=== PATIENT | male | born 1980 | race Caucasian/White ===

== ENCOUNTER → 2017-03-07 | Outpatient (CLI) | payer OTHER ==
[~2017-03-07] MED LIST: SERT100T PO
[2017-03-07 17:38] LABS: HEMATOCRIT 44.7 % (42-52); MEAN CELL VOLUME 84.8 fL (80-100); MEAN CORPUSCULAR HEMOGLOBIN 30.6 pg (25-34); MEAN PLATELET VOLUME 9.5 fL (7.4-10.4); PLATELET COUNT 263 K/uL (130-400); RED BLOOD COUNT 5.27 M/uL (4.7-6.1)
[2017-03-07 17:59] LABS: AST/SGOT 42 U/L (15-37); BLOOD UREA NITROGEN 13 mg/dl (7-18); BUN/CREATININE RATIO 11.2 (10-20); CALCIUM 10.1 mg/dl (8.5-10.1); CARBON DIOXIDE 32 mmol/L (21-32); CHLORIDE 106 mmol/L (98-107); GLUCOSE 81 mg/dl (70-99); POTASSIUM 4.2 mmol/L (3.5-5.1); SODIUM 143 mmol/L (136-145)
[2017-03-07 18:11] LABS: ALKALINE PHOSPHATASE 90 U/L (45-117); ALT/SGPT 96 U/L (12-78); THYROID STIMULATING HORMONE 0.734 uIu/ml (0.300-4.500)
== END | disposition home or self-care (01) ==
LOC: C.LABBFT 15:31
PROVIDERS: ATTEND Physician Assistant Medical
DX: R53.83 Other fatigue (principal)

== ENCOUNTER → 2017-03-07 | Outpatient (CLI) | payer OTHER | END | disposition home or self-care (01) | LOC: C.LABSPEC 18:12 | PROVIDERS: ATTEND Physician Assistant Medical | DX: J02.9 Acute pharyngitis, unspecified (principal) ==

== ENCOUNTER → 2017-03-09 | Outpatient (CLI) | payer OTHER ==
[2017-03-09 13:41] LABS: ALKALINE PHOSPHATASE 95 U/L (45-117); ALT/SGPT 94 U/L (12-78); AST/SGOT 35 U/L (15-37); FERRITIN 68.4 ng/ml (8.0-388.0); TOTAL IRON BINDING CAPACITY 358 mcg/dl (250-450)
[2017-03-10 15:10] LABS: ALPHA-1-ANTITRYPSIN TC 67710E 135 MG/DL (83-199)
== END | disposition home or self-care (01) ==
LOC: C.LABBFT 08:27
PROVIDERS: ATTEND Physician Assistant Medical
DX: R74.8 Abnormal levels of other serum enzymes (principal)

== ENCOUNTER → 2017-03-10 | Outpatient (CLI) | payer OTHER ==
--- NOTE | 2017-03-10 07:58 | DIAGNOSTIC IMAGING REPORT ---
ULTRASOUND RIGHT UPPER QUADRANT ABDOMEN CLINICAL HISTORY: Elevated hepatic transaminases. COMPARISON STUDY: Abdominal CT dated 08/29/2014. TECHNIQUE: Real-time, grayscale, and color flow sonography of the right upper quadrant of the abdomen was performed. Images are reviewed in the transverse and longitudinal planes. FINDINGS: Liver: The liver is enlarged and demonstrates heterogeneously increased echotexture consistent with severe hepatic steatosis. Note that this degrades acoustic penetration of the liver. There is no intrahepatic biliary ductal dilatation. The main portal vein is patent. Gallbladder: The gallbladder is normal in appearance. No gallstones are identified. There is no gallbladder wall thickening or pericholecystic fluid. A sonographic Cortes's sign is reportedly absent. The common bile duct measures up to 0.4 cm in diameter. Pancreas: Visualized portions of the pancreatic head and body are normal in appearance. Right kidney: Survey images of the right kidney demonstrate normal size and echotexture. There is no hydronephrosis. Ascites: None. IMPRESSION: 1. No acute sonographic abnormality is identified. No gallstones are seen. 2. Hepatomegaly and severe hepatic steatosis. Electronically signed by: Ben Schaefer M.D. 03/10/2017 7:57 AM Dictated Date/Time: 03/10/2017 7:56 AM
== END | disposition home or self-care (01) ==
LOC: C.ULTR 06:48
PROVIDERS: ATTEND Physician Assistant Medical
DX: R74.8 Abnormal levels of other serum enzymes (principal); R16.0 Hepatomegaly, not elsewhere classified; K76.0 Fatty (change of) liver, not elsewhere classified

== ENCOUNTER → 2017-04-10 | Outpatient (CLI) | payer OTHER ==
[2017-04-13 05:03] LABS: ANTI-CENTROMERE AB <1.0 NEG AI (<1.0 NEG); ANTI-SS-A <1.0 NEG AI (<1.0 NEG); ANTI-SS-B <1.0 NEG AI (<1.0 NEG); DNA ds CRITHIDIA NEGATIVE (NEGATIVE); MICROSOMAL AB 8 IU/ML (<9); Sm Antibody <1.0 NEG AI (<1.0 NEG)
== END | disposition home or self-care (01) ==
LOC: C.LAB1850 11:00
PROVIDERS: ATTEND Internal Medicine Rheumatology
DX: R53.83 Other fatigue (principal); R76.8 Other specified abnormal immunological findings in serum; M25.50 Pain in unspecified joint; M54.6 Pain in thoracic spine

== ENCOUNTER → 2017-04-13 | Outpatient (CLI) | payer OTHER ==
--- NOTE | 2017-04-13 13:06 | DIAGNOSTIC IMAGING REPORT ---
L-SPINE MIN 4 VIEWS ROUTINE CLINICAL HISTORY: R53.83 [id number] Elevated antinuclear antibody (ZINA) [id number] lower back pain. COMPARISON STUDY: No previous studies for comparison. FINDINGS: There are postsurgical changes in the right lower quadrant. There is no pathologic bowel dilatation. No fractures or subluxations are visualized. There are no erosive or destructive changes. There are minor degenerative changes the thoracolumbar junction. IMPRESSION: Minor degenerative changes at the thoracolumbar junction. No fractures subluxations or destructive lesions are visualized Electronically signed by: Gray Laughlin M.D. 04/13/2017 1:05 PM Dictated Date/Time: 04/13/2017 1:04 PM
--- NOTE | 2017-04-13 13:08 | DIAGNOSTIC IMAGING REPORT ---
THORACIC SPINE 3 VIEWS CLINICAL HISTORY: Thoracic back pain. Numbness in lower back. FINDINGS: AP, lateral, and swimmer's views of the thoracic spine are obtained. No prior studies are available for comparison at the time of dictation. The skeletal structures are well mineralized. No fracture or malalignment is identified. Vertebral body height and alignment are maintained throughout the thoracic spine. Tiny anterior osteophytes are seen throughout. The transverse processes and pedicles are grossly intact as seen on the frontal view. Intervertebral disc spaces appear maintained. The imaged lung parenchyma appears clear. IMPRESSION: No acute bony abnormality is seen involving the thoracic spine. Electronically signed by: Ben Schaefer M.D. 04/13/2017 1:06 PM Dictated Date/Time: 04/13/2017 1:04 PM
[2017-04-13 13:24] LABS: URINE APPEARANCE CLEAR (CLEAR); URINE BILIRUBIN NEG (NEG); URINE COLOR YELLOW; URINE EPITHELIAL CELL AUTO 0-5 /lpf (0-5); URINE NITRITE NEG (NEG); URINE SPECIFIC GRAVITY 1.022 (1.000-1.030); UROBILINOGEN NEG (NEG)
[2017-04-13 13:35] LABS: MANUAL MICROSCOPIC REQUIRED? NO; REVIEW REQ? NO
--- NOTE | 2017-04-13 16:38 | DIAGNOSTIC IMAGING REPORT ---
WHOLE BODY BONE SCAN HISTORY: Back pain CHRONIC THORACIC BACK PAIN RADIOTRACER: 26.5 mCi Tc-99m MDP STUDY/IMAGES: Planar anterior and posterior whole body imaging was performed 3 hours following the intravenous administration of radiotracer. COMPARISON: None. FINDINGS: Normal activity characteristics of the axial and appendicular skeleton. No abnormal foci of increased activity. Bilateral renal activity is present. IMPRESSION: Normal study Electronically signed by: Ricihe Delgado M.D. 04/13/2017 4:37 PM Dictated Date/Time: 04/13/2017 4:35 PM
== END | disposition home or self-care (01) ==
LOC: C.NUCL 12:15
PROVIDERS: ATTEND Internal Medicine Rheumatology
DX: M25.50 Pain in unspecified joint (principal); M54.6 Pain in thoracic spine; R53.83 Other fatigue; R76.8 Other specified abnormal immunological findings in serum

== ENCOUNTER → 2017-05-15 | Outpatient (CLI) | payer OTHER ==
[~2017-05-15] MED LIST changes: +GADAVIST IV PRN
--- NOTE | 2017-05-15 08:58 | DIAGNOSTIC IMAGING REPORT ---
BRAIN COMBO HISTORY:36 yearsMale[age]. No reported trauma. COMPARISON: None available. TECHNIQUE: Multiplanar multisequence MRI of the brain was obtained both with and without the use of 11 mL Gadavist IV contrast. FINDINGS: There is no restricted diffusion to suggest acute ischemia. The midline structures including the corpus callosum, brainstem, optic chiasm, infundibulum, pituitary gland appear unremarkable. 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 No cerebellar tonsillar herniation. No acute intracranial hemorrhage, midline shift, abnormal extra-axial collections, hydrocephalus or intracranial mass. No abnormal enhancement. No pathologic blooming artifact. Single focus of increased FLAIR signal of the right frontal lobe seen on image 8 of the coronal T2/FLAIR series measuring 8 x 4 mm is noted without associated abnormal signal on the other sequences or associated enhancement. Mastoid air cells and middle ear cavities appear clear. Large area of polypoid mucosal thickening involves the left greater than right maxillary sinuses. There is mild inferior frontal and ethmoid sinus mucosal disease as well. The orbits are symmetric. Soft tissues are unremarkable. IMPRESSION: 1. 8 x 4 mm focus of increased FLAIR signal of the subcortical right frontal lobe seen on one image alone is thought to be artifactual without associated enhancement or abnormal signal on any of the other series. Focal area of gliosis could have a similar appearance. If of further clinical concern, a follow-up exam may be considered. 2. The remainder of the brain is within normal limits without abnormal enhancement or signal characteristics identified. 3. Moderate paranasal sinus disease as above. The above report was generated using voice recognition software. It may contain grammatical, syntax or spelling errors. Electronically signed by: Sukhjinder Ellsworth 05/15/2017 8:57 AM Dictated Date/Time: 05/15/2017 8:45 AM
== END | disposition home or self-care (01) ==
LOC: C.MRIBC 07:49
PROVIDERS: ATTEND Physician Assistant
DX: R51 Headache (principal)

== ENCOUNTER → 2017-05-30 | Outpatient (CLI) | payer OTHER ==
[~2017-05-30] MED LIST changes: -GADAVIST IV PRN
[2017-05-30 13:32] LABS: LYME DISEASE AB IGG NEG (NEG); LYME DISEASE AB IGM NEG (NEG)
== END | disposition home or self-care (01) ==
LOC: C.LABBFT 08:15
PROVIDERS: ATTEND Physician Assistant
DX: R51 Headache (principal)

== ENCOUNTER → 2017-07-14 | Outpatient (CLI) | payer OTHER ==
[2017-07-14 12:46] LABS: CALCIUM 9.8 mg/dl (8.5-10.1)
[2017-07-14 12:54] LABS: CHOLESTEROL/HDL RATIO 4.7
== END | disposition home or self-care (01) ==
LOC: C.LABBFT 08:25
PROVIDERS: ATTEND Internal Medicine
DX: R74.8 Abnormal levels of other serum enzymes (principal); Z13.6 Encounter for screening for cardiovascular disorders

== ENCOUNTER → 2017-08-18 | Outpatient (CLI) | payer OTHER ==
[~2017-08-18] VITALS: Ht 182.9 cm; Wt 112.5 kg
[2017-08-18 13:36] VITALS: BP 113/74; PULSE 52; Ht 182.9 cm; Wt 112.5 kg
== END | disposition home or self-care (01) ==
LOC: C.NEUR 13:21
PROVIDERS: ATTEND Internal Medicine Pulmonary Disease
DX: G47.19 Other hypersomnia (principal); G47.8 Other sleep disorders; G47.50 Parasomnia, unspecified

== ENCOUNTER → 2017-10-13 | Outpatient (CLI) | payer OTHER ==
[~2017-10-13] VITALS: Ht 182.9 cm; Wt 107.3 kg
[2017-10-13 15:34] VITALS: BP 114/74; PULSE 58; Ht 182.9 cm; Wt 107.3 kg
== END | disposition home or self-care (01) ==
LOC: C.NEUR 15:24
PROVIDERS: ATTEND Internal Medicine Pulmonary Disease
DX: G47.419 Narcolepsy without cataplexy (principal); G47.19 Other hypersomnia; G47.8 Other sleep disorders

== ENCOUNTER → 2017-12-19 | Outpatient (CLI) | payer OTHER ==
[~2017-12-19] VITALS: Ht 182.9 cm; Wt 104.6 kg
[2017-12-19 13:17] VITALS: BP 109/74; PULSE 74; Ht 182.9 cm; Wt 104.6 kg
== END | disposition home or self-care (01) ==
LOC: C.NEUR 12:45
PROVIDERS: ATTEND Internal Medicine Pulmonary Disease
DX: G47.19 Other hypersomnia (principal); G47.419 Narcolepsy without cataplexy; G47.8 Other sleep disorders

== ENCOUNTER → 2018-02-20 | Outpatient (CLI) | payer OTHER ==
[~2018-02-20] VITALS: Ht 182.9 cm; Wt 102.4 kg
[2018-02-20 13:06] VITALS: BP 120/73; PULSE 69; Ht 182.9 cm; Wt 102.4 kg
== END | disposition home or self-care (01) ==
LOC: C.NEUR 12:40
PROVIDERS: ATTEND Physician Assistant Medical
DX: G47.19 Other hypersomnia (principal); G47.419 Narcolepsy without cataplexy

== ENCOUNTER → 2018-03-20 | Outpatient (CLI) | payer OTHER ==
[~2018-03-20] VITALS: Ht 182.9 cm; Wt 99.9 kg
[~2018-03-20] MED LIST changes: +AMPH10TA2 PO; +NAPR-1169 PO; +PROP1TAB PO; +TOPI50TA16 PO; +VRPSR180; +ZOLM1TAB3 PO
[2018-03-20 14:42] VITALS: BP 119/79; PULSE 56; Ht 182.9 cm; Wt 99.9 kg
== END | disposition home or self-care (01) ==
LOC: C.NEUR 13:53
PROVIDERS: ATTEND Internal Medicine Pulmonary Disease
DX: G47.19 Other hypersomnia (principal); G47.419 Narcolepsy without cataplexy; R53.83 Other fatigue